=== PATIENT | male | born 1960 | race Caucasian/White ===

== ENCOUNTER 2021-03-10 09:44 | Outpatient (CLI) | payer BC | END 2021-03-10 09:45 | disposition home or self-care (01) | LOC: DTY/OP 09:44 | PROVIDERS: ATTEND Family Medicine | DX: E66.3 Overweight (principal) | CPT/HCPCS: 97802 ==

== ENCOUNTER 2021-08-25 17:30 | Outpatient (CLI) | payer BC | END 2021-08-25 17:31 | disposition home or self-care (01) | LOC: SLEEPLAB 17:30 | PROVIDERS: ATTEND Internal Medicine | DX: G47.33 Obstructive sleep apnea (adult) (pediatric) (principal); R06.83 Snoring; E11.9 Type 2 diabetes mellitus without complications; G47.00 Insomnia, unspecified; R09.02 Hypoxemia | CPT/HCPCS: 95800 ==

== ENCOUNTER 2021-12-22 19:00 | Outpatient (CLI) | payer BC | END 2021-12-22 19:01 | disposition home or self-care (01) | LOC: SLEEPLAB 19:00 | PROVIDERS: ATTEND Internal Medicine | DX: G47.33 Obstructive sleep apnea (adult) (pediatric) (principal); G47.30 Sleep apnea, unspecified; U09.9 Post COVID-19 condition, unspecified; Z87.891 Personal history of nicotine dependence | CPT/HCPCS: 95810 ==